=== PATIENT | female | born 1960 | race Caucasian/White ===

== ENCOUNTER → 2022-08-25 14:41 | Outpatient (CLI) | payer OTHER, SELFPAY ==
--- NOTE | ~2022-08-25 | XR_ITS ---
XR abdomen/kub 1V 08/25/2022 15:06 Indication: Bilateral kidney stones Procedure: KUB Comparison: No prior studies for comparison. Findings: There are bilateral renal stones. There are cholecystectomy clips. There are pelvic phlebol iths on the right. Moderate lumbar spondylosis with dextroscoliosis. No acute osseous abnormality. Impression: 1: Bilateral nephrolithiasis. Reviewed, dictated and finalized at location B. Impression: 1: Bilateral nephrolithiasis.
== END ==
PROVIDERS: PCP Family Medicine; Visit Provider Urology
DX: N20.0 Calculus of kidney (principal)
CPT/HCPCS: 74018